=== PATIENT | male | born 1985 | race Caucasian/White ===

== ENCOUNTER 2016-03-26 18:55 | Emergency (ER) | payer SELFPAY ==
[~2016-03-26] VITALS: Ht 188 cm; Wt 139.0 kg
[~2016-03-26 18:55] MED LIST: ASCO500C PO; ASPI81CH CHEW; BENT20TA PO; CARV3.12 PO; FERR1TAB58 PO; Hydrochlorothiazide PO; MOBI7.5T PO; OMEGCAP PO; ZANT150T2 PO; ZOFR4TAB PO
[2016-03-26 19:03] VITALS: BP 146/99; PULSE 96; RESP 20; TEMP 99.2; O2SAT 95
[2016-03-26] MEDS ORDERED: PRED10 PO (19:27)
[2016-03-26 19:29] VITALS: BP 131/66; PULSE 100; RESP 20; O2SAT 100
[2016-03-26 19:35] LABS: AUTOMATED NEUTROPHIL # 16.5 TH/MM3 (1.8-7.7); BASOPHIL # 0.2 TH/MM3 (0-0.2); BASOPHIL % 0.8 % (0.0-2.0); EOSINOPHIL # 0.1 TH/MM3 (0-0.4); EOSINOPHIL % 0.5 % (0.0-4.0); HEMATOCRIT 39.1 % (39.0-51.0); HEMO FLAGS DIFF FINAL; LYMPH % 17.1 % (9.0-44.0); LYMPHOCYTE # 3.7 TH/MM3 (1.0-4.8); MEAN CELL VOLUME 83.5 FL (80.0-100.0); MEAN CORPUSCULAR HEMOGLOBIN 27.5 PG (27.0-34.0); MONO % 5.6 % (0.0-8.0); PLATELET COUNT 319 TH/MM3 (150-450); RED BLOOD COUNT 4.68 MIL/MM3 (4.50-5.90); RED CELL DISTRIBUTION WIDTH 14.4 % (11.6-17.2); WHITE BLOOD COUNT 21.7 TH/MM3 (4.0-11.0)
[2016-03-26 20:00] LABS: BICARBONATE 29.1 MEQ/L (21.0-32.0); POTASSIUM 4.2 MEQ/L (3.5-5.1)
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
== END 2016-03-26 20:40 | disposition home or self-care (01) ==
LOC: NEPE 18:55
DX: R56.9 Unspecified convulsions (principal); F43.10 Post-traumatic stress disorder, unspecified; J45.909 Unspecified asthma, uncomplicated; E78.00 Pure hypercholesterolemia, unspecified; E11.9 Type 2 diabetes mellitus without complications; I10 Essential (primary) hypertension; Z98.2 Presence of cerebrospinal fluid drainage device
CPT/HCPCS: 80048; 83605; 85025

== ENCOUNTER 2016-03-31 08:01 | Emergency (ER) | payer SELFPAY ==
[~2016-03-31] VITALS: Ht 188 cm; Wt 137.0 kg
[~2016-03-31 08:01] MED LIST changes: +PRED10 PO
[2016-03-31 08:06] VITALS: BP 118/84; PULSE 89; RESP 16; TEMP 98.2; O2SAT 99
[2016-03-31] MEDS ORDERED: OMEP20TA PO (08:13)
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
[2016-03-31 08:40] LABS: AUTOMATED NEUTROPHIL # 9.3 TH/MM3 (1.8-7.7); BASOPHIL # 0.1 TH/MM3 (0-0.2); BASOPHIL % 0.7 % (0.0-2.0); EOSINOPHIL # 0.3 TH/MM3 (0-0.4); EOSINOPHIL % 2.6 % (0.0-4.0); HEMATOCRIT 40.4 % (39.0-51.0); HEMO FLAGS DIFF FINAL; LYMPHOCYTE # 2.3 TH/MM3 (1.0-4.8); MEAN CELL VOLUME 82.8 FL (80.0-100.0); MEAN CORPUSCULAR HEMOGLOBIN 27.6 PG (27.0-34.0); MEAN CORPUSCULAR HGB CONC 33.3 % (32.0-36.0); MONO % 4.8 % (0.0-8.0); NEUT % 73.9 % (16.0-70.0); PLATELET COUNT 243 TH/MM3 (150-450); RED BLOOD COUNT 4.88 MIL/MM3 (4.50-5.90); RED CELL DISTRIBUTION WIDTH 13.9 % (11.6-17.2); WHITE BLOOD COUNT 12.5 TH/MM3 (4.0-11.0)
[2016-03-31 09:04] LABS: BICARBONATE 28.4 MEQ/L (21.0-32.0); MAGNESIUM 2.4 MG/DL (1.5-2.5); POTASSIUM 4.2 MEQ/L (3.5-5.1)
[2016-03-31 10:04] VITALS: BP 112/66; PULSE 85; RESP 17; TEMP 98; O2SAT 99
[2016-03-31 12:35] VITALS: BP 110/71; TEMP 97.8
== END 2016-03-31 12:35 | disposition home or self-care (01) ==
LOC: NEPC 08:01
DX: R25.9 Unspecified abnormal involuntary movements (principal); E78.00 Pure hypercholesterolemia, unspecified; I10 Essential (primary) hypertension
CPT/HCPCS: 80048; 83735; 85025; 99284